=== PATIENT | male | born 1930 | race Caucasian/White ===

== ENCOUNTER 2017-10-20 13:57 | Outpatient (CLI) | payer OTHER ==
--- NOTE | 2017-10-20 15:36 | RAD ---
THREE VIEWS LUMBAR SPINE: HISTORY: Low back pain. FINDINGS: AP, lateral, and coned-down views of lumbar spine are obtained. Three views lumbar spine demonstrate vascular calcification of the abdominal aorta. A large anterior osteophyte is seen throughout the lumbar spine. Multilevel disk space height loss a nd disk desiccation is seen involving all the lumbar intervertebral disk spaces. There is mild levos coliosis seen. No acute abnormality is seen. IMPRESSION: Multilevel lumbar disk desiccation and mild levoscoliosis. No acute abnormality is seen. POS: C
== END 2017-10-20 13:58 | disposition home or self-care (01) ==
LOC: RAD-FRANK 13:57
PROVIDERS: ATTEND Nurse Practitioner Family
DX: M54.5 Low back pain (principal); M51.36 Other intervertebral disc degeneration, lumbar region; M41.9 Scoliosis, unspecified
CPT/HCPCS: 72100